=== PATIENT | female | born 1935 | race Caucasian/White ===

== ENCOUNTER 2017-09-03 22:34 | Inpatient (IN) | END 2017-09-06 19:30 | disposition home health service (06) | DRG 872 ==

== ENCOUNTER 2018-06-23 01:06 | Emergency (ER) | payer MEDICARE, OTHER ==
[~2018-06-23] VITALS: Ht 157.5 cm; Wt 38.5 kg
[~2018-06-23 01:06] MED LIST: AMLO-145 PO; DOXY100T20 PO; HYDR4TAB51 PO; MORP15TA92 PO
--- NOTE | 2018-06-23 01:13 | ERD ---
ER Documentation Chief Complaint Chief Complaint weakness HPI The patient is a 83-year-old female, presenting to the ER from home because of generalized weakness, confused decreased appetite according to the . Has been bedbound for the last 2 weeks because of back pain and diarrhea. She does not have fever, chills, cough, neck pain, chest pain. Her history is is not reliable, the history is mostly obtained from the . She does not smoke nor drink. Past medical history: Right lung cancer, diagnosed about 6 months ago, history of rectal cancer 5 years ago treated with chemotherapy and radiation therapy, chronic pain syndrome required daily Dilaudid Past surgical history: Abdominal surgery, the details unclear ROS All systems reviewed and are negative except as per history of present illness. Medications Home Meds Reported Medications Amlodipine Besylate* (Amlodipine Besylate*) 5 Mg Tablet, 5 MG PO DAILY 07/15/15 Hydromorphone Hcl* (Dilaudid*) 4 Mg Tablet, 4 MG PO Q4H PRN for PAIN, TAB 07/15/15 Morphine Sulfate* (Ms Contin*) 15 Mg Tablet.sa, 15 MG PO DAILY, TAB 07/15/15 Discontinued Scripts Doxycycline Hyclate* (Doxycycline Hyclate*) 100 Mg Tablet.dr, 100 MG PO BID for 7 Days, #14 TAB Prov:YA TAYLOR V. [employer] 09/06/17 Allergies Allergies: Coded Allergies: No Known Drug Allergies (Verified Allergy, Mild, 07/15/15) PMhx/Soc History of Surgery: Yes (hip surgery, GI surgery, eye surgery) Anesthesia Reaction: No Hx Neurological Disorder: No Hx Respiratory Disorders: No Hx Cardiac Disorders: No Hx Psychiatric Problems: No Hx Alcohol Use: No Hx Substance Use: No Hx Tobacco Use: No Physical Exam Vitals Vital Signs Date Temp Pulse Resp B/P (MAP) Pulse Ox O2 O2 Flow FiO2 Time Delivery Rate 06/23/18 118 21 99 21 05:29 06/23/18 100.1 01:34 06/23/18 100.4 147 29 94/64 (74) 98 Room Air 01:23 06/23/18 Nasal 01:16 Cannula 06/23/18 100.4 144 25 59/26 (37) 98 01:14 Physical Exam Const: No acute distress. Dehydrated, confused Head: Atraumatic. Eyes: Normal Conjunctiva. ENT: Normal External Ears, Nose and Mouth. Neck: Full range of motion. No meningismus. Resp: Clear to auscultation anteriorly and laterally, decrease left lung breath sounds Cardio: Regular tachycardic Abd: Soft, non distended, normal bowel sounds, diffuse abdominal tenderness, guarding. Skin: No petechiae or rashes. Back: No midline or flank tenderness. Decubitus ulcers Ext: No cyanosis, or edema. Neur: Awake. Limited due to her condition Psych: Confused. Limited due to her condition Result Diagram: 06/23/18 0125 06/23/18 0125 Results 24 hrs Laboratory Tests Test 06/23/18 01:17 06/23/18 01:25 06/23/18 01:29 06/23/18 03:30 Bedside Glucose 119 mg/dL White Blood Count 12.5 10^3/ul Red Blood Count 5.58 10^6/ul Hemoglobin 13.7 g/dl Hematocrit 45.3 % Mean Corpuscular 81.2 fl Volume Mean Corpuscular 24.6 pg Hemoglobin Mean Corpuscular 30.2 g/dl Hemoglobin Concent Red Cell 19.7 % Distribution Width Platelet Count 246 10^3/UL Mean Platelet 9.9 fl Volume Immature 1.100 % Granulocytes % Neutrophils % 90.1 % Lymphocytes % 5.2 % Monocytes % 3.0 % Eosinophils % 0.0 % Basophils % 0.6 % Nucleated Red Blood 0.0 /100WBC Cells % Immature 0.140 10^3/ul Granulocytes # Neutrophils # 11.2 10^3/ul Lymphocytes # 0.7 10^3/ul Monocytes # 0.4 10^3/ul Eosinophils # 0.0 10^3/ul Basophils # 0.1 10^3/ul Nucleated Red Blood 0.0 10^3/ul Cells # Prothrombin Time 15.4 Sec Prothrombin Time 1.2 Ratio INR International 1.21 Normalized Ratio Activated 27.4 Sec Partial Thromboplas t Time Sodium Level 131 mmol/L Potassium Level 5.9 mmol/L Chloride Level 96 mmol/L Carbon Dioxide 19 mmol/L Level Anion Gap 16 Blood Urea Nitrogen 57 mg/dl Creatinine 1.85 mg/dl Est Glomerular mL/min Filtrat Rate mL/min Glucose Level 112 mg/dl Calcium Level 9.0 mg/dl Total Bilirubin 0.6 mg/dl Direct Bilirubin 0.00 mg/dl Indirect Bilirubin 0.6 mg/dl Aspartate Amino 52 IU/L Transf (AST/SGOT) Alanine 27 IU/L Aminotransferase (A LT/SGPT) Alkaline 256 IU/L Phosphatase Troponin I 0.076 ng/ml Total Protein 7.4 g/dl Albumin 3.2 g/dl Globulin 4.20 g/dl Albumin/Globulin 0.76 Ratio Free Thyroxine 2.62 ug/ml Index Thyroxine (T4) 5.5 ug/dl Triiodothyronine 47.7 % (T3) Uptake POC Venous Lactate 5.5 mmol/L Urine Color EL Urine Clarity CLOUDY Urine pH 5.0 Urine Specific 1.016 [place] Urine Ketones NEGATIVE mg/dL Urine Nitrite NEGATIVE mg/dL Urine Bilirubin NEGATIVE mg/dL Urine Urobilinogen NEGATIVE mg/dL Urine Leukocyte 2+ Anibal/ul Esterase Urine Microscopic > 182 /HPF RBC Urine Microscopic 74 /HPF WBC Urine Squamous FEW /HPF Epithelial Cells Urine Bacteria MANY /HPF Urine Mucus MANY /HPF Urine Hemoglobin 2+ mg/dL Urine Glucose NEGATIVE mg/dL Urine Total Protein NEGATIVE mg/dl Test 06/23/18 03:37 06/23/18 05:26 06/23/18 05:40 Bedside Urine pH 5.0 (LAB) Bedside Urine 1+ Protein (LAB) Bedside Urine Negative Glucose (UA) Bedside Urine Negative Ketones (LAB) Bedside Urine Blood 2+ Bedside Urine Negative Nitrite (LAB) Bedside Urine 1+ Leukocyte Esterase (L Bedside Glucose 94 mg/dL POC Venous Lactate 1.8 mmol/L Current Medications Medications Dose Sig/Lc Start Time Status Last (Trade) Ordered Route PRN Stop Time Admin Dose Reason Admin Sodium 1,160 ml @ BOLUS X1 06/23/18 DC 06/23/18 Chloride 1,160 mls/hr ONCE IV 01:30 06/23/18 01:33 02:29 650 mg ONCE ONCE 06/23/18 DC 06/23/18 Acetaminophen TX 01:30 06/23/18 01:34 (Tylenol 01:31 Supp) Vancomycin 250 ml @ ONCE ONCE 06/23/18 DC 06/23/18 HCl 125 mls/hr IVPB 02:00 06/23/18 01:37 03:59 Piperacillin 100 ml @ ONCE ONCE 06/23/18 DC 06/23/18 Sod/ 200 mls/hr IVPB 02:00 06/23/18 01:37 Tazobactam 02:29 Sod Naloxone 0.4 mg ONCE ONCE 06/23/18 DC 06/23/18 HCl IV 02:00 06/23/18 01:37 (Narcan) 02:01 Dextrose 100 ml ONCE ONCE 06/23/18 DC 06/23/18 (D50w IV 04:00 06/23/18 05:17 Syringe) 04:01 Insulin 10 unit ONCE ONCE 06/23/18 DC 06/23/18 Human IVP 03:50 06/23/18 05:28 Regular 03:55 (Humulin R) Dextrose ONCE PRN 06/23/18 (D50w IV DECREASED 04:00 Syringe) GLUCOSE 250 ml @ TITRATE IV 06/23/18 06/23/18 Norepinephrin 1.875 mls/ 04:00 05:18 e hr Sodium 30 gm ONCE ONCE 06/23/18 DC Polystyrene PO 05:12 06/23/18 Sulfonate 05:13 (Kayexalate) Albuterol 10 mg ONCE ONCE 06/23/18 DC 06/23/18 (Proventil INH 05:13 06/23/18 05:28 0.5% (Neb)) 05:14 Ondansetron 4 mg Q6H PRN 06/23/18 HCl (Zofran IV NAUSEA 06:00 Inj) AND/OR VOMITING 650 mg Q6H PRN 06/23/18 Acetaminophen PO PAIN 06:00 (Tylenol LEVEL 1-3 OR Liquid) FEVER 40 mg DAILY@06 06/23/18 Pantoprazole IV 06:00 (Protonix Iv) Heparin 5,000 unit Q8 SC 06/23/18 Sodium 06:00 (Porcine) (Heparin (5000 Units/1ml)) 50 ml @ Q12 IVPB 06/23/18 Meropenem/Sod 100 mls/hr 09:00 ium Chloride Vancomycin VANCOMYCIN PER 06/23/18 HCl (Vanco PER PHARMACY PROTOCOL XX 06:00 Iv Per Pharmacy) Albumin 100 ml @ Q1H IV 06/23/18 Human 100 mls/hr 06:00 06/23/18 07:59 Procedures/MDM [address] [address] Radiology Main Line: [phone] DIAGNOSTIC IMAGING REPORT Patient: ELLA MAHMOOD : 1935 Age: 83 Sex: F MR #: [id number] DOS: 06/23/18 0113 Ordering MD: TRUNG MARIE MD Location: E/R Room/Bed: PROCEDURE: CHEST - 1 VIEW CLINICAL INDICATION: 83-year-old female with shortness of breath and sepsis. TECHNIQUE: A single frontal AP semi-erect portable view of the chest was performed. The images were reviewed on a PACS workstation. COMPARISON: CHEST 09/03/2017; LISA CHEST 07/15/2015 FINDINGS: The cardiomediastinal silhouette is indeterminate. There is opacification of the left chest consistent with collapsed left lung with probable underlying pleural effusion. The right lung is expanded without evidence for focal infiltrate . There is no evidence for congestive heart failure. There is no evidence for pneumothorax. Thoracolumbar scoliosis is again appreciated. Degenerative changes are seen within the spine. IMPRESSION: 1. Opacified left chest consistent with collapsed left lung with probable overlying pleural effusion. 2. Thoracolumbar scoliosis with degenerative changes. .Ike Wise MD, MD Date Time Electronically viewed and signed by .Ike Wise MD, MD on 06/23/2018 02:42 .M/ CC: TRUNG MARIE MD [id number] EKG: Read by emergency physician Rate/Rhythm: Sinus tachycardia 143 beats/min QRS, ST, T-waves: No ST elevation, no T inversion, PAC, low voltage, septal Q's Impression: Abnormal EKG [place] [address] Radiology Main Line: [phone] DIAGNOSTIC IMAGING REPORT Patient: ELLA MAHMOOD : 1935 Age: 83 Sex: F MR #: [id number] DOS: 06/23/18 0122 Ordering MD: TRUNG MARIE MD Location: E/R Room/Bed: PROCEDURE: CT Chest, and pelvis without contrast. CLINICAL INDICATION: Cough, abdominal pain. TECHNIQUE: CT scan of the chest, abdomen and pelvis with and without contrast was performed on the [employer] [address] scanner . The patient was scanned without intravenous administration. Coronal and sagittal reformatted images were obtained. DICOM images are available. The total exam CTDI equals 7.72 mGy and the total exam DLP equals 544.87 mGy-cm. One or more of the following dose reduction techniques were utilized: 1.) Automated exposure control 2.) Adjustment of the mA +/- kV according to patient's size 3.) Use of iterative reconstruction technique. COMPARISON: DR CHEST 06/23/2018; PT CT BODY 08/08/2017; CT 07/25/2017 FINDINGS: Large left pleural effusion and collapse of the left lung are visualized. Calc ified, heterogeneous mass in the left lower lobe is again demonstrated. There is occlusion of the left lower lobe bronchus. The mass in the anterior medial right upper lobe is increased in size measuring 2.2 x 1.7 cm. Several new nodules are seen in the right upper lobe measuring 3 mm to 1.1 cm, including a 9 mm nodule along the minor fissure. Right upper lobe linear scarring or atelectasis is also noted. The mediastinum is unremarkable without evidence for mass or lymphadenopathy. The vascular structures of the mediastinum are normal in course and caliber. Aortic vascular calcifications and coronary artery calcifications are present. The heart size is normal without evidence for pericardial thickening or effusion. Prominent epicardial fat is noted. The axillary regions, subpectoral regions, and supraclavicular regions are unremarkable. Right breast calcifications are seen. Exam is limited due to streak artifact and lack of contrast. There is development of multiple defined, heterogeneous hypodense lesions throughout the liver, including the caudate lobe. The previously identified large right hepatic cyst is grossly unchanged. The spleen is normal in size and contour. The pancreas is unremarkable. The adrenal glands are thickened, unchanged. The gallbladder is distended. There is no evidence of cholelithiasis or biliary ductal dilatation. There is suggestion of an ill-defined, heterogeneous mass in the posterior right kidney. Bilateral parapelvic renal cysts, and punctate calcification in the upper pole of the left kidney are seen. No definite hydronephrosis. The aorta is normal in caliber. The stomach is collapsed. There is no evidence of obstruction, free air or free fluid. The appendix is not seen. The sigmoid colonic and rectal garcia appear thickened. Evaluation is limited due to underdistension. There is increase in perirectal, presacral soft tissue density, edema. No mesenteric, retroperitoneal or pelvic lymphadenopathy is identified. The bladder is distended with small layering hyperdense material. The uterus is absent. The osseous mineralization is decreased There is thoracic kyphosis, S-shaped scoliosis and degenerative changes. No osteolytic or osteoblastic lesion is detected. Right total hip arthroplasty is noted. There are degenerative changes in the left hip. Diffuse muscle atrophy. IMPRESSION: 1. Large left pleural effusion, occlusion of the left lower lobe bronchus and collapse of the left lung. 2. No significant change in the calcified, heterogeneous left lower lobe mass. 3. Increase in size of the mass in the anterior medial right upper lobe and multiple new nodules. 4. Multiple heterogeneous masses throughout the liver, evaluation is limited without contrast. Suspect metastatic disease. No significant change in the hepatic cysts. 5. Ill-defined heterogeneous mass in the posterior right kidney. Contrast enhanced exam is recommended. 6. Colorectal wall thickening and increased presacral soft tissue density, edema. Correlate with PET scan. 7. Small amount of hyperdense material in the bladder which may represent calculi, contrast or blood. Correlate clinically. 8. Aortic atherosclerosis. 9. 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 [facility] Physician Karey Date Time Electronically viewed and signed by Physician Karey on 06/23/2018 05:33 CS/ CC: TRUNG MARIE MD [phone] [place] [address] Radiology Main Line: [phone] DIAGNOSTIC IMAGING REPORT Patient: ELLA MAHMOOD : 1935 Age: 83 Sex: F MR #: [id number] DOS: 06/23/18 0113 Ordering MD: TRUNG MARIE MD Location: E/R Room/Bed: PROCEDURE: CHEST - 1 VIEW CLINICAL INDICATION: 83-year-old female with shortness of breath and sepsis. TECHNIQUE: A single frontal AP semi-erect portable view of the chest was performed. The images were reviewed on a PACS workstation. COMPARISON: CHEST 09/03/2017; LISA CHEST 07/15/2015 FINDINGS: The cardiomediastinal silhouette is indeterminate. There is opacification of the left chest consistent with collapsed left lung with probable underlying pleural effusion. The right lung is expanded without evidence for focal infiltrate . There is no evidence for congestive heart failure. There is no evidence for pneumothorax. Thoracolumbar scoliosis is again appreciated. Degenerative changes are seen within the spine. IMPRESSION: 1. Opacified left chest consistent with collapsed left lung with probable overlying pleural effusion. 2. Thoracolumbar scoliosis with degenerative changes. .Ike Wise MD, MD Date Time Electronically viewed and signed by .Ike Wise MD, MD on 06/23/2018 02:42 .M/ CC: TRUNG MARIE MD [id number] Brain CT is pending MEDICAL MAKING DECISION: The patient is a 83-year-old female, presenting with acute septic shock, acute kidney injury, acute hyperkalemia, acute left pleural effusion, acute cystitis, decubitus ulcer. She was treated with folic catheter due to acute kidney injury, normosaline 30 mm/kg IV, vancomycin IV, Zosyn IV, levophed drip for acute septic shock and acute cystitis, Tylenol suppository for fever with, Narcan 0.4 mg IV for suspected opioid overdose, 2 amp d50 iv/10 units regular insulin/ kayexalate 30 g po/albuterol 10 mg nebulizer for acute hyperkalemia with good response. The differential diagnoses considered include but are not limited to pneumonia, aspiration pneumonia, metastatic cancer, pyelonephritis, osteomyelitis, infected decubitus ulcer MDM: Patient's infectious symptoms have not stabilized and the patient is at risk of rapid decompensation. The patient will be admitted for careful hydration, anti biotic therapy, and infectious source control. SEVERE SEPSIS CRITERIA: Infectious source: uti, decub ulcers End organ damage indicated by: [Lactate > 2.0 mmol/L Hypotension (SBP < 90 or >40 mmHG drop or MAP < 65) SEPSIS MANAGEMENT Time of recognition of septic shock: 1:30 am 3 HOUR BUNDLE Blood cultures x 2 before broad-spectrum antibiotics: [Yes] 30 ml/kg NS bolus [Completed] Initial lactate []5.5 Repeat lactate Pending SEPTIC SHOCK ASSESSMENT: Yes Lactic acid > 4.0 Yes Persistent hypotension (SBP < 90 or 40 mmHg drop, MAP < 65) despite 30 mL/kg IV fluid bolus VOLUME REASSESSMENT FOR SEPTIC SHOCK: Reevaluation Time: []5am Temp []98.1, BP []76/61, HR []129, RR[]23, Pox []95% Heart [Regular tachycardic Lungs [No crackles], left lung decreased breath sounds Skin [Warm & dry] Cap Refill [Less than 2 seconds] Peripheral pulses [Radially present] PERSISTENT HYPOTENSION TREATMENT: Comfort care [No] Central line RIJ Vasopressor started Levophed drip I considered further perfusion assessment with CVP measurement, SCVO2, bedside ultrasound volume assessment, passive leg raise, trial of further fluid bolus. And proceeded with [30 ml/kg fluid bolus of NSS, broad spectrum antibiotics, and admission.] CRITICAL CARE Critical care time [35] minutes Emergent fluid management while maintaining close respiratory support. Provision of immediate and broad-spectrum antibiotic therapy. Simultaneous assessment for possible sources in order to direct targeted therapy. Consideration for invasive and chemical support to prevent cardiopulmonary collapse. Critical care time is independent of procedures performed. Central Line Placement by me: After the patient was consented and a time out was performed, appropriate hand hygiene was performed, the skin site was fully prepped and maximal sterile barrier technique was employed where the patient was sterilely draped, and the provider wore a mask and sterile gown and gloves. Anesthesia: 1% lidocaine locally Location: RIJ Device: Multiple lumen Technique: Seldinger technique. Secured with suture. Results: Venous return from all ports with easy saline flush. No comp lications. []Guide wire retrieved and disposed of. ED Ultrasound: Central line placed by me using concurrent ultrasound guidance done using sterile technique. Real time image archived in the medical record confirms vascular anatomy. Departure Diagnosis: Primary Impression: Septic shock Additional Impressions: UTI (urinary tract infection) Hyperkalemia KELSEY (acute kidney injury) Pleural effusion, left Decubital ulcer Condition: Critical Comments I discussed the findings with the patient. I discussed the patient with the hospitalist Dr Liu at 5:20am who was made aware of the lab, the treatment, the patient condition. The patient is admitted to ICU Disclaimer: Inadvertent spelling and grammatical errors are likely due to EHR/dictation software use and do not reflect on the overall quality of patient care. Also, please note that the electronic time recorded on this note does not necessarily reflect the actual time of the patient encounter. TRUNG MARIE MD Jun 23, 2018 01:13
[2018-06-23 01:14] VITALS: Ht 157.5 cm; Wt 38.5 kg
[2018-06-23] MEDS ORDERED: SOD CHLORIDE 0.9% 1,160 ML IV ONE (01:30)
[2018-06-23] MEDS ORDERED: ACETAMINOPHEN 650 MG SUPP PR ONE (01:30)
[2018-06-23] MEDS ORDERED: VANCOMYCIN 1 GM (PMX) 250 ML IVPB ONE (02:00)
[2018-06-23] MEDS ORDERED: PIPER-TAZO 3.375 GM IV (PMX) 100 ML IVPB ONE (02:00)
[2018-06-23] MEDS ORDERED: NALOXONE (0.4 MG/ML) INJ IV ONE (02:00)
[2018-06-23] MEDS ORDERED: INSULIN REGULAR, HUMAN 100 UNIT/1 ML 3ML VIAL IVP ONE (03:50)
[2018-06-23] MEDS ORDERED: DEXTROSE 50% 50 ML SYRINGE IV ONE (04:00)
[2018-06-23] MEDS ORDERED: DEXTROSE 50% 50 ML SYRINGE IV PRN (04:00)
[2018-06-23] MEDS ORDERED: NORepinephrine 8MG/250 ML (PMX 250 ML IV SCH ×2 (04:00→09:00)
[2018-06-23] MEDS ORDERED: NA POLYST SULFON 15 GM/60 ML BTL PO ONE (05:12)
[2018-06-23] MEDS ORDERED: ALBUTEROL 0.5% (NEB) 2.5 MG/0.5 ML AMP INH ONE (05:13)
[2018-06-23] MEDS ORDERED: PANTOPRAZOLE 40 MG INJ IV SCH (06:00)
[2018-06-23] MEDS ORDERED: ONDANSETRON 4 MG INJ IV PRN (06:00)
[2018-06-23] MEDS ORDERED: VANCOMYCIN IV PER PHARMACY XX SCH (06:00)
[2018-06-23] MEDS: ALBUMIN HUMAN 25% 100 ML IV SCH ×2 (06:00→07:00)
[2018-06-23] MEDS ORDERED: ACETAMINOPHEN 650MG/20.3ML CUP PO PRN (06:00)
[2018-06-23] MEDS ORDERED: HEPARIN 5,000 UNIT/1 ML VIAL SC SCH (06:00)
--- NOTE | 2018-06-23 07:03 | HP ---
Date/Time of Note Date/Time of Note DATE: 06/23/18 TIME: 07:00 Assessment/Plan VTE Prophylaxis SCD applied (from Nsg): Yes Pharmacological prophylaxis: NA/contraindicated Pharm contraindication: low risk/ambulating Lines/Catheters IV Catheter Type (from Nrsg): Central Line Central line still needed: Yes (pressor support ) Urinary Cath still in place: Yes Reason Cath still needed: other (indicate) (critical condition) Assessment/Plan Hospital Course This is a 82-year-old female who is being admitted to the telemetry floor for: #1 septic shock secondary to UTI #2 Acute encephalopathy #3 Hyperkalemia #4 Acute kidney injury #5 Urinary tract infection #6 dehydration #7 rectal cancer with metastasis #7 complete left-sided lung opacification secondary to possible underlying lung mass/effusion #8 moderate to severe protein calorie malnutrition Plan: I did have an extensive discussion with the at the bedside and did discuss the patient's clinical condition. I explained to the that patient prognosis is very poor given her underlying metastatic disease on top of the septic shock that she is currently dealing with as well as her poor nutritional status. Even despite her septic shock, given her wide spread metastatic disease as well as the significant involvement of the cancer in her lungs I do feel the patient has a terminal illness with less than 6 months to live. After discussing the case extensively with the the decision was made that to make the patient a DNR/DNI with plans for hospice. Patient was adamant that he did not want inpatient hospice and that he wanted to take the patient home. After contacting the hospital resources and the nursing staff we were able to get in touch with [facility]. The industrial relations representative from the hospice did arrive at the bedside and evaluated the patient and she does feel the patient qualifies. They are working on the arrangements for the patient's home as well as the transport logistics. In the meantime we will continue [facility] ICU level of care with current vasopressor support of levophed. We will not initiate any further antibiotics. Will provide pain control with morphine pushes as needed and Ativan for agitation. Plan would be for patient to be taken home via transport arranged by the hospice. Despite the patient being on pressor support the does understand that there is a possibility that the patient may pass away on the ambulance ride but the is willing to take that risk. Will wean pressors and if indicated will give PO Midodrine prior to discharge for bp support. I have notified the RN regarding the plan of care as well as the attending physician who will be taking over during the day shift. is also on board and he has been provided the information regarding hospice by the industrial relations representative. Further treatment strategy will be implemented as per the clinical course CODE STATUS: DNR/DNI with plan for home hospice. Result Diagram: 06/23/18 0125 06/23/18 0125 Results 24hrs Laboratory Tests Test 06/23/18 01:17 06/23/18 01:25 06/23/18 01:29 06/23/18 03:30 Bedside Glucose 119 White Blood Count 12.5 #H Red Blood Count 5.58 #H Hemoglobin 13.7 # Hematocrit 45.3 # Mean Corpuscular 81.2 L Volume Mean Corpuscular 24.6 L Hemoglobin Mean Corpuscular 30.2 L Hemoglobin Concent Red Cell 19.7 #H Distribution Width Platelet Count 246 # Mean Platelet 9.9 Volume Immature 1.100 H Granulocytes % Neutrophils % 90.1 H Lymphocytes % 5.2 L Monocytes % 3.0 Eosinophils % 0.0 Basophils % 0.6 Nucleated Red 0.0 Blood Cells % Immature 0.140 H Granulocytes # Neutrophils # 11.2 H Lymphocytes # 0.7 L Monocytes # 0.4 Eosinophils # 0.0 Basophils # 0.1 Nucleated Red 0.0 Blood Cells # Prothrombin Time 15.4 H Prothrombin Time 1.2 Ratio INR International 1.21 Normalized Ratio Activated 27.[address] Time Sodium Level 131 L Potassium Level 5.9 H Chloride Level 96 L Carbon Dioxide 19 L Level Anion Gap 16 H Blood Urea 57 H Nitrogen Creatinine 1.85 H Est Glomerular Filtrat Rate mL/min Glucose Level 112 Calcium Level 9.0 Total Bilirubin 0.6 Direct Bilirubin 0.00 Indirect Bilirubin 0.6 Aspartate Amino 52 H Transf (AST/SGOT) Alanine 27 Aminotransferase ( ALT/SGPT) Alkaline 256 H Phosphatase Troponin I 0.076 Total Protein 7.4 Albumin 3.2 L Globulin 4.20 H Albumin/Globulin 0.76 Ratio Free Thyroxine 2.62 Index Thyroxine (T4) 5.5 Triiodothyronine 47.7 H (T3) Uptake POC Venous Lactate 5.5 *H Urine Color EL Urine Clarity CLOUDY A Urine pH 5.0 Urine Specific 1.016 Emmons Urine Ketones NEGATIVE Urine Nitrite NEGATIVE Urine Bilirubin NEGATIVE Urine Urobilinogen NEGATIVE Urine Leukocyte 2+ H Esterase Urine Microscopic > 182 H RBC Urine Microscopic 74 H WBC Urine Squamous FEW Epithelial Cells Urine Bacteria MANY A Urine Mucus MANY A Urine Hemoglobin 2+ H Urine Glucose NEGATIVE Urine Total NEGATIVE Protein Test 06/23/18 03:37 06/23/18 05:26 06/23/18 05:40 06/23/18 06:16 Bedside Urine pH 5.0 (LAB) Bedside Urine 1+ H Protein (LAB) Bedside Urine Negative Glucose (UA) Bedside Urine Negative Ketones (LAB) Bedside Urine 2+ H Blood Bedside Urine Negative Nitrite (LAB) Bedside Urine 1+ H Leukocyte Esterase (L Bedside Glucose 94 302 H Blood Gas Specimen Blood arterial Source Arterial Blood 06/23/2018 5:50:06 Date Drawn AM Arterial Blood pH 7.474 H (Temp corrected) Arterial Blood 25.5 L pCO2 (Temp correct) Arterial Blood pO2 77.4 L (Temp corrected) Arterial Blood 18.3 L HCO3 Arterial Blood -4.2 L Base Excess Arterial Blood 95.5 Oxygen Saturation Jay Test ACCEPTAB Arterial Blood Gas Left Radial Puncture Site Arterial 0.3 Blood Carboxyhemog lobin Arterial Blood 0.2 Methemoglobin Blood Gas A-a O2 41.8 H Differential Oxyhemoglobin 95.0 Percent Blood Gas 37.0 Temperature Blood Gas Actual 20 Respiration Rate Blood Gas Modality ROOM AIR FiO2 21.0 Blood Gas Notified Whom Blood Gas Notified 06/23/2018 6:00:10 Time AM POC Venous Lactate 1.8 HPI/ROS Admit Date/Time Admit Date/Time Hx of Present Illness Chief complaint: Generalized weakness, confusion This is a 83-year-old female with a history of rectal cancer with metastasis to the lung who presented to the ER from home because of generalized weakness and confusion. The reported that the patient also had decreased appetite at home as well. She has been bedbound over the last 2 weeks because of back pain and diarrhea. She has not move much in the last 2 weeks. She did not have a f ever chills or nausea vomiting. Patient was not able to provide a reliable history upon arrival to the emergency department. She was noted to be severely hypotensive and febrile upon arrival to the emergency department. Immediate resuscitative measures were taken and patient was given IV fluids and given central line placement and started on pressor support. She was given antibiotics as well. At the current time upon my examination of the patient at the bedside she appears to be somnolent and almost obtunded. Her mucous membranes are dry and she appears ill. Allergies: NKDA Medications: See LILLIE CELIA Subjective hx not possible: pt critical status (Somnolent, septic shock) PMH/Family/Social Past Medical History Hypertension, hyperlipidemia, Right lung cancer, diagnosed about 6 months ago, h istory of rectal cancer 5 years ago treated with chemotherapy and radiation therapy, chronic pain syndrome required daily Dilaudid Medications Current Medications Dextrose (D50w Syringe) ONCE PRN IV DECREASED GLUCOSE; Start 06/23/18 at 04:00 Norepinephrine 250 ml @ 1.875 mls/ hr TITRATE IV Last administered on 06/23/18at 05:18; Admin Dose 1.875 MLS/HR; Start 06/23/18 at 04:00 Ondansetron HCl (Zofran Inj) 4 mg Q6H PRN IV NAUSEA AND/OR VOMITING; Start 06/23/18 at 06:00 Acetaminophen (Tylenol Liquid) 650 mg Q6H PRN PO PAIN LEVEL 1-3 OR FEVER; Start 06/23/18 at 06:00 Pantoprazole (Protonix Iv) 40 mg DAILY@06 IV ; Start 06/23/18 at 06:00 Heparin Sodium (Porcine) (Heparin (5000 Units/1ml)) 5,000 unit Q8 SC ; Start 06/23/18 at 06:00 Meropenem/Sodium Chloride 50 ml @ 100 mls/hr Q12 IVPB ; Start 06/23/18 at 09:00 Vancomycin HCl (Vanco Iv Per Pharmacy) VANCOMYCIN PER PHARMACY PER PROTOCOL XX ; Start 06/23/18 at 06:00 Albumin Human 100 ml @ 100 mls/hr Q1H IV ; Start 06/23/18 at 06:00; Stop 06/23/18 at 07:59 Coded Allergies: No Known Drug Allergies (Verified Allergy, Mild, 07/15/15) Past Surgical History Past Surgical Hx: no surgical history Family History Significant Family History: no pertinent family hx Social History Smoking Status: Never smoker Exam/Review of Systems Vital Signs Vitals Vital Signs Date Temp Pulse Resp B/P (MAP) Pulse Ox O2 O2 Flow FiO2 Time Delivery Rate 06/23/18 118 21 99 21 05:29 06/23/18 98.1 05:00 06/23/18 76/61 (66) Room Air 05:00 Intake and Output 06/22/18 06/22/18 06/23/18 1515:00 23:00 07:00 IntakeIntake Total 1510 ml BalanceBalance 1510 ml Exam Exam General: Ill-appearing, somnolent female currently on pressor support of levophed at 10mics HEENT: Atraumatic, normocephalic. The pupils are equal, round and reactive. Extraocular motor are intact, mucous membranes severely dry Neck: Supple, right IJ central line Chest: Nontender Lungs: Coarse breath sounds bilaterally Heart: Normal S1-S2, Regular rhythm and rate. Abdomen: Soft , suprapubic tenderness on exam , bowel sounds are present. , No costovertebral temporal angle mass Extremities: Normal to inspection, no edema no cyanosis Genitourinary: Urbano catheter draining foul-smelling, cloudy urine Neurologic: Somnolent, difficult to arouse. Additional Comments PROCEDURE: CT Brain without contrast. CLINICAL INDICATION: Altered level of consciousness TECHNIQUE: A CT of the brain was performed on a Nat[employer]ope[employer]Steam 64-slice CT s canner utilizing axial imaging from the skull base through the vertex without IV contrast. Multiplanar reformatted images were made. Images were reviewed on a PACS workstation. The CTDIvol is 37.59 mGy and the DLP is 634.23 mGycm. DICOM images are available. One or more of the following dose reduction techniques were utilized: 1.) Automated exposure control 2.) Adjustment of the mA +/- kV according to patient's size 3.) Use of iterative reconstruction technique. COMPARISON: CT BRAIN 07/15/2015 FINDINGS: There is no intracranial hemorrhage, mass effect, or midline shift. No extra-axial fluid collection is seen. There is increased moderate cortical atrophy with compensatory ventricular and sulcal enlargement. Anterior inferior left temporal lobe volume loss is again noted. Increase moderate hypodensities in the periventricular and deep white matter, compatible with microvascular ischemic disease. The page white matter differentiation is preserved with no acute infarct detected. Dilated perivascular space in the inferior right basal ganglia is again seen. Mild hypodensity seen in the left cerebellum. The intracranial internal carotid arteries are calcified. The paranasal sinuses are clear. There is evidence for an old left orbital floor fracture with a titanium plate in place. The calvarium is normal. IMPRESSION: 1. No evidence of acute intracranial hemorrhage. Mild hypodensity in the left cerebellum. Acute ischemia is not excluded. MRI is recommended 2. Increase moderate generalized cortical atrophy. 3. Mild increase moderate microvascular ischemic disease. [facility] Physician Karey Date Time Electronically viewed and signed by Mark Pacheco Physician on 06/23/2018 05:52 CS/ CC: TRUNG MARIE MD PROCEDURE: CT Chest, and pelvis without contrast. CLINICAL INDICATION: Cough, abdominal pain. TECHNIQUE: CT scan of the chest, abdomen and pelvis with and without contrast was performed on the [employer]am [address] scanner . The patient was scanned without intravenous administration. Coronal and sagittal reformatted images were obtained. DICOM images are available. The total exam CTDI equals 7.72 mGy and the total exam DLP equals 544.87 mGy-cm. One or more of the following dose reduction techniques were utilized: 1.) Automated exposure control 2.) Adjustment of the mA +/- kV according to patient's size 3.) Use of iterative reconstruction technique. COMPARISON: DR CHEST 06/23/2018; PT CT BODY 08/08/2017; CT 07/25/2017 FINDINGS: Large left pleural effusion and collapse of the left lung are visualized. C alcified, heterogeneous mass in the left lower lobe is again demonstrated. There is occlusion of the left lower lobe bronchus. The mass in the anterior medial right upper lobe is increased in size measuring 2.2 x 1.7 cm. Several new nodules are seen in the right upper lobe measuring 3 mm to 1.1 cm, including a 9 mm nodule along the minor fissure. Right upper lobe linear scarring or atelectasis is also noted. The mediastinum is unremarkable without evidence for mass or lymphadenopathy. The vascular structures of the mediastinum are normal in course and caliber. Aortic vascular calcifications and coronary artery calcifications are present. The heart size is normal without evidence for pericardial thickening or effusion. Prominent epicardial fat is noted. The axillary regions, subpectoral regions, and supraclavicular regions are unremarkable. Right breast calcifications are seen. Exam is limited due to streak artifact and lack of contrast. There is development of multiple defined, heterogeneous hypodense lesions throughout the liver, including the caudate lobe. The previously identified large right hepatic cyst is grossly unchanged. The spleen is normal in size and contour. The pancreas is unremarkable. The adrenal glands are thickened, unchanged. The gallbladder is distended. There is no evidence of cholelithiasis or biliary ductal dilatation. There is suggestion of an ill-defined, heterogeneous mass in the posterior right kidney. Bilateral parapelvic renal cysts, and punctate calcification in the upper pole of the left kidney are seen. No definite hydronephrosis. The aorta is normal in caliber. The stomach is collapsed. There is no evidence of obstruction, free air or free fluid. The appendix is not seen. The sigmoid colonic and rectal garcia appear thickened. Evaluation is limited due to underdistension. There is increase in perirectal, presacral soft tissue density, edema. No mesenteric, retroperitoneal or pelvic lymphadenopathy is identified. The bladder is distended with small layering hyperdense material. The uterus is absent. The osseous mineralization is decreased There is thoracic kyphosis, S-shaped scoliosis and degenerative changes. No osteolytic or osteoblastic lesion is detected. Right total hip arthroplasty is noted. There are degenerative changes in the left hip. Diffuse muscle atrophy. IMPRESSION: 1. Large left pleural effusion, occlusion of the left lower lobe bronchus and collapse of the left lung. 2. No significant change in the calcified, heterogeneous left lower lobe mass. 3. Increase in size of the mass in the anterior medial right upper lobe and multiple new nodules. 4. Multiple heterogeneous masses throughout the liver, evaluation is limited without contrast. Suspect metastatic disease. No significant change in the hepatic cysts. 5. Ill-defined heterogeneous mass in the posterior right kidney. Contrast enh anced exam is recommended. 6. Colorectal wall thickening and increased presacral soft tissue density, edema. Correlate with PET scan. 7. Small amount of hyperdense material in the bladder which may represent calculi, contrast or blood. Correlate clinically. 8. Aortic atherosclerosis. 9. 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 [facility] Physician Karey Date Time Electronically viewed and signed by Physician Karey on 06/23/2018 05:33 CS/ CC: TRUNG MARIE MD [id number] PROCEDURE: CHEST - 1 VIEW CLINICAL INDICATION: 83-year-old female with shortness of breath and sepsis. TECHNIQUE: A single frontal AP semi-erect portable view of the chest was performed. The images were reviewed on a PACS workstation. COMPARISON: CHEST 09/03/2017; LISA CHEST 07/15/2015 FINDINGS: The cardiomediastinal silhouette is indeterminate. There is opacification of the left chest consistent with collapsed left lung with probable underlying pleural effusion. The right lung is expanded without evidence for focal infiltrate . There is no evidence for congestive heart failure. There is no evidence for pneumothorax. Thoracolumbar scoliosis is again appreciated. Degenerative changes are seen within the spine. IMPRESSION: 1. Opacified left chest consistent with collapsed left lung with probable overlying pleural effusion. 2. Thoracolumbar scoliosis with degenerative changes. .Ike Wise MD, MD Date Time Electronically viewed and signed by .Ike Wise MD, on 06/23/2018 02:42 .M/ CC: TRUNG MARIE MD [id number] WILFREDO GONZALES Jun 23, 2018 07:02
[2018-06-23] MEDS ORDERED: morphine 2 MG INJ IV PRN (07:30)
[2018-06-23] MEDS ORDERED: MEROPENEM 1 GM/50ML(PMX) 50 ML IVPB SCH (09:00)
[2018-06-23] MEDS ORDERED: MIDODRINE 5 MG TAB PO ONE (09:00)
[2018-06-23 12:16] VITALS: BP 99/65; PULSE 101; RESP 20
--- NOTE | 2018-06-23 13:56 | DS ---
Date/Time of Note Date/Time of Note DATE: 06/23/18 TIME: 13:52 Discharge Summary Admission/Discharge Info Admit Date/Time June 23, 2018 Discharge Date/Time June 23, 2018 Discharge Diagnosis Metastatic rectal cancer Patient Condition: Critical Hx of Present Illness Chief complaint: Generalized weakness, confusion This is a 83-year-old female with a history of rectal cancer with metastasis to the lung who presented to the ER from home because of generalized weakness and c onfusion. The reported that the patient also had decreased appetite at home as well. She has been bedbound over the last 2 weeks because of back pain and diarrhea. She has not move much in the last 2 weeks. She did not have a fever chills or nausea vomiting. Patient was not able to provide a reliable history upon arrival to the emergency department. She was noted to be severely hypotensive and febrile upon arrival to the emergency department. Immediate resuscitative measures were taken and patient was given IV fluids and given central line placement and started on pressor support. She was given antibiotics as well. At the current time upon my examination of the patient at the bedside she appears to be somnolent and almost obtunded. Her mucous membranes are dry and she appears ill. Allergies: NKDA Medications: See [facility] Hospital Course Extensive discussion was held between Dr. Liu, the patient and the . An agreement was made for DNR/DNI and home hospice care. The was adamant that the patient be at home when she passes away. A hospice agency was found and their premium service representative came to bedside in the ED. The patient was successfully weaned off norepinephrine; got one dose of PO midodrine to help with blood pressure. Central line and all IV removes; and the patient was discharged home via ambulance uneventfully. Home Meds Reported Medications Amlodipine Besylate* (Amlodipine Besylate*) 5 Mg Tablet, 5 MG PO DAILY 07/15/15 Hydromorphone Hcl* (Dilaudid*) 4 Mg Tablet, 4 MG PO Q4H PRN for PAIN, TAB 07/15/15 Morphine Sulfate* (Ms Contin*) 15 Mg Tablet.sa, 15 MG PO DAILY, TAB 07/15/15 Discontinued Scripts Doxycycline Hyclate* (Doxycycline Hyclate*) 100 Mg Tablet., 100 MG PO BID for 7 Days, #14 TAB Prov:YA TAYLOR V. [employer] 09/06/17 Primary Care Provider Not On Staff Doctor Time spent on discharge: > 30 minutes Pending Labs Laboratory Tests Test 06/23/18 01:17 06/23/18 01:25 06/23/18 01:29 06/23/18 03:30 Bedside 119 Glucose mg/dL (70-220) White Blood 12.5 Count 10^3/ul (4.8-1 0.8) Red Blood 5.58 Count 10^6/ul (4.20- 5.40) Hemoglobin 13.7 g/dl (12.0-16. 0) Hematocrit 45.3 % (37.0-47.0) Mean 81.2 Corpuscular fl (82.0-101.0 Volume ) Mean 24.6 Corpuscular pg (29.0-33.0) Hemoglobin Mean 30.2 Corpuscular g/dl (32.0-37. Hemoglobin Conc 0) ent Red Cell 19.7 Distribution % (11.5-14.5) Width Platelet Count 246 10^3/UL (140-4 15) Mean Platelet 9.9 Volume fl (7.4-10.4) Immature 1.100 Granulocytes % % (0.001-0.429 ) Neutrophils % 90.1 % (39.0-77.0) Lymphocytes % 5.2 % (15.0-51.0) Monocytes % 3.0 % (0.0-11.0) Eosinophils % 0.0 % (0.0-7.0) Basophils % 0.6 % (0.0-2.0) Nucleated Red 0.0 Blood Cells % /100WBC (0.0-0 .0) Immature 0.140 Granulocytes # 10^3/ul (0.0-0 .031) Neutrophils # 11.2 10^3/ul (1.6-7 .5) Lymphocytes # 0.7 10^3/ul (0.8-2 .9) Monocytes # 0.4 10^3/ul (0.3-0 .9) Eosinophils # 0.0 10^3/ul (0.0-0 .5) Basophils # 0.1 10^3/ul (0.0-0 .1) Nucleated Red 0.0 Blood Cells # 10^3/ul (0.0-0 .0) Prothrombin 15.4 Time Sec (11.9-14.9 ) Prothrombin 1.2 Time Ratio INR 1.21 International Normalized Rati o Activated 27.4 Partial Thrombo Sec (23.0-35.0 plast Time ) Sodium Level 131 mmol/L (135-14 4) Potassium 5.9 Level mmol/L (3.5-5. 1) Chloride Level 96 mmol/L (97-110 ) Carbon Dioxide 19 Level mmol/L (21-31) Anion Gap 16 (5-13) Blood Urea 57 Nitrogen mg/dl (7-20) Creatinine 1.85 mg/dl (0.44-1. 00) Est Glomerular mL/min (>60) Filtrat Rate mL/min Glucose Level 112 mg/dl (70-220) Calcium Level 9.0 mg/dl (8.4-10. 2) Total 0.6 Bilirubin mg/dl (0.2-1.3 ) Direct 0.00 Bilirubin mg/dl (0.00-0. 20) Indirect 0.6 Bilirubin mg/dl (0-1.1) Aspartate Amino 52 Transf (AST/SGO IU/L (15-46) T) Alanine 27 Aminotransferas IU/L (13-69) e (ALT/SGPT) Alkaline 256 Phosphatase IU/L (42-121) Troponin I 0.076 ng/ml (0.000-0 .120) Total Protein 7.4 g/dl (6.1-8.1) Albumin 3.2 g/dl (3.3-4.9) Globulin 4.20 g/dl (1.3-3.2) Albumin/Globuli 0.76 n Ratio Free Thyroxine 2.62 Index ug/ml (0.65-3. 89) Thyroxine (T4) 5.5 ug/dl (5.5-11. 0) Triiodothyronin 47.7 e (T3) Uptake % (23.5-40.5) POC Venous 5.5 Lactate mmol/L (0.5-2. 0) Urine Color EL (YELLOW) Urine Clarity CLOUDY (CLEAR) Urine pH 5.0 (5.0-9.0) Urine Specific 1.016 (1.003-1 Thompson .030) Urine Ketones NEGATIVE mg/dL (NEGATIV E) Urine Nitrite NEGATIVE mg/dL (NEGATIV E) Urine NEGATIVE Bilirubin mg/dL (NEGATIV E) Urine NEGATIVE Urobilinogen mg/dL (NEGATIV E) Urine Leukocyte 2+ Esterase Anibal/ul (NEGATI VE) Urine > 182 Microscopic /HPF (0-5) RBC Urine 74 /HPF (0-5) Microscopic WBC Urine Squamous FEW /HPF (FEW) Epithelial Cell s Urine Bacteria MANY /HPF (NONE SEEN) Urine Mucus MANY /HPF (NONE SEEN) Urine 2+ Hemoglobin mg/dL (NEGATIV E) Urine Glucose NEGATIVE mg/dL (NEGATIV E) Urine Total NEGATIVE Protein mg/dl (NEGATIV E) Test 06/23/18 03:37 06/23/18 05:26 06/23/18 05:40 06/23/18 06:16 Bedside Urine 5.0 (5.0-8.5) pH (LAB) Bedside Urine 1+ (NEGATIVE) Protein (LAB) Bedside Urine Negative (NEGAT Glucose (UA) SINDY) Bedside Urine Negative (NEGAT Ketones (LAB) SINDY) Bedside Urine 2+ (NEGATIVE) Blood Bedside Urine Negative (NEGAT Nitrite (LAB) SINDY) Bedside Urine 1+ (NEGATIVE) Leukocyte Lorie ase (L Bedside 94 302 Glucose mg/dL (70-220) mg/dL (70-220) Blood Gas Blood arterial Specimen Source Arterial Blood 06/23/2018 5:50: Date Drawn 06 AM Arterial Blood 7.474 (7.350-7 pH .450) (Temp corrected ) Arterial Blood 25.5 pCO2 mmhg (35-45) (Temp correct) Arterial Blood 77.4 pO2 mmHG (80-90.0) (Temp corrected ) Arterial Blood 18.3 HCO3 mmol/L (22.0-2 6.0) Arterial Blood -4.2 Base Excess mmol/L (-3.0-3 ) Arterial Blood 95.5 Oxygen Saturati mmHG (95.0-100 on .0) Jay Test ACCEPTAB Arterial Blood Left Radial Gas Puncture Site Arterial 0.3 Blood Carboxyhe % (0.0-3.0) moglobin Arterial Blood 0.2 Methemoglobin % (0.0-1.5) Blood Gas A-a 41.8 O2 mmHg (7.0-24.0 Differential ) Oxyhemoglobin 95.0 Percent % (93.0-99.0) Blood Gas 37.0 C Temperature Blood Gas 20 Actual Respiration Rat e Blood Gas ROOM AIR Modality FiO2 21.0 % Blood Gas Notified Whom Blood Gas 06/23/2018 6:00: Notified Time 10 AM POC Venous 1.8 Lactate mmol/L (0.5-2. 0) Test 06/23/18 07:55 Lactic Acid 6.4 Level mmol/L (0.5-2.0 ) LINETTE PETERS MD Jun 23, 2018 13:56
== END 2018-06-23 12:26 | disposition home or self-care (01) ==
LOC: E/R 01:06 → CANRESERV 07:06 → E/R 12:26 → CANBEDREQ 06-25 19:19
DX: A41.9 Sepsis, unspecified organism (principal); R65.21 Severe sepsis with septic shock; N39.0 Urinary tract infection, site not specified; E87.5 Hyperkalemia; N17.9 Acute kidney failure, unspecified; J90 Pleural effusion, not elsewhere classified; L89.109 Pressure ulcer of unspecified part of back, unspecified stage; Z85.118 Personal history of other malignant neoplasm of bronchus and lung; Z85.048 Personal history of other malignant neoplasm of rectum, rectosigmoid junction, and anus
CPT/HCPCS: 36415; 36556; 36600; 51702; 70450; 71045; 71250; 74176; 76937; 80053; 81001; 82803; 82962; 83605; 84436; 84479; 84484; 85025; 85610; 85730; 87040; 87086; 94664; 96365; 96366; 96368; 96375; 99291; C9113; J1644; J1815; J2185; J2270; J2310; J2543; J3370; J7030; P9047; 81003